=== PATIENT | female | born 1975 | race Asian ===

== ENCOUNTER → 2024-11-30 09:09 | Outpatient (REF) | payer BC, SELFPAY | LOC: REG 09:09 | PROVIDERS: ATTENDING PHYSICIAN Family Medicine | DX: M25.512 Pain in left shoulder (principal) | CPT/HCPCS: 73030 ==

== ENCOUNTER → 2025-04-30 18:08 | Outpatient (REF) | payer BC, SELFPAY | LOC: WDC 18:08 | PROVIDERS: ATTENDING PHYSICIAN Family Medicine | DX: Z12.31 Encounter for screening mammogram for malignant neoplasm of breast (principal) | CPT/HCPCS: 77063; 77067 ==